=== PATIENT | male | born 1970 | race Caucasian/White ===

== ENCOUNTER 2024-02-03 20:11 | Emergency (ER) | payer MEDICARE, MEDICAID ==
[~2024-02-03] VITALS: Ht 172.7 cm; Wt 129.0 kg
[2024-02-03 21:05] VITALS: TEMP 98
[2024-02-03 21:05] LABS: BILIRUBIN,URINE NEGATIVE (Neg); CLARITY,URINE CLEAR (Clear); COLOR,URINE STRAW (Yellow); GLUCOSE, URINE >=1000 mg/dl (Neg); KETONES,URINE NEGATIVE (Neg); LEUKOCYTE ESTERASE ,URINE NEGATIVE (Neg); NITRITES, URINE NEGATIVE (Neg); OCCULT BLOOD,URINE TRACE-INTACT (Neg); PROTEIN,URINE NEGATIVE (Neg); UROBILINOGEN,URINE 0.2 E.U/dL (0.2-1.0)
[2024-02-03 21:12] LABS: UA COLLECTION TYPE CLN CATCH MIDSTREAM
[2024-02-03 21:14] LABS: BACTERIA,URINE NONE SEEN /HPF (Neg); RBC,URINE 0-2 /HPF (0-2); WBC,URINE 0-4 /HPF (0-4)
[2024-02-03 21:15] LABS: SQUAMOUS EPITHELIAL CELL,UR FEW /LPF (FEW)
[2024-02-03 21:38] LABS: BASOPHILS # (AUTO) 0.1 X10'3 (0-0.2); BASOPHILS % (AUTO) 0.8 % (0-1); EOSINOPHILS # (AUTO) 0.2 X10'3 (0-0.9); EOSINOPHILS % (AUTO) 1.9 % (0-6); HEMATOCRIT 44.9 % (42.0-52.0); HEMOGLOBIN 15.2 g/dl (14.0-17.9); LYMPHOCYTES # (AUTO) 2.4 X10'3 (1.1-4.8); LYMPHOCYTES % (AUTO) 26.1 % (21-51); MEAN CORPUSCULAR HEMOGLOBIN 29.8 PG (27.0-31.0); MEAN CORPUSCULAR HGB CONC 33.8 g/dL (33.0-36.5); MEAN CORPUSCULAR VOLUME 88.4 FL (78-98); MEAN PLATELET VOLUME 9.6 FL (7.4-10.4); MONOCYTES # (AUTO) 0.6 X10'3 (0-0.9); MONOCYTES % (AUTO) 6.6 % (2-12); NEUTROPHILS # (AUTO) 5.9 X10'3 (1.8-7.7); NEUTROPHILS % (AUTO) 64.6 % (42-75); PLATELET COUNT 208 X10'3 (140-440); RED BLOOD COUNT 5.08 X10'6 (4.70-6.10); RED CELL DISTRIBUTION WIDTH 13.7 % (11.5-14.5); WHITE BLOOD COUNT 9.1 X10'3 (4.5-11.0)
[2024-02-03 22:00] LABS: ALANINE AMINOTRANSFERASE 45 U/L (12-78); ALBUMIN 3.4 G/DL (3.4-5.0); ALBUMIN/GLOBULIN RATIO 0.9 (1.1-1.5); ALKALINE PHOSPHATASE 119 IU/L (46-116); ANION GAP 7 (8-16); ASPARTATE AMINO TRANSFERASE 24 U/L (10-37); BILIRUBIN,TOTAL 0.3 MG/DL (0.1-1.0); BLOOD UREA NITROGEN 15 MG/DL (7-18); BUN/CREATININE RATIO 18.3 (10.0-20.0); CALCIUM 8.4 MG/DL (8.5-10.1); CHLORIDE 99 MMOL/L (99-107); CREATININE 0.82 MG/DL (0.60-1.10); SODIUM 131 MMOL/L (135-145); TOTAL CARBON DIOXIDE 24.6 MMOL/L (24-32); TOTAL PROTEIN 7.4 G/DL (6.4-8.2); eCRCL 101 ML/MIN; eGFR > 90 ML/MIN
[2024-02-03 22:01] LABS: PRO BRAIN NATRIURETIC PEPTIDE 537 PG/ML (0-125)
[2024-02-03 22:02] LABS: POTASSIUM 4.1 MMOL/L (3.5-5.1)
[2024-02-03 22:51] LABS: GLUCOSE 416 MG/DL (70-104)
[2024-02-03] MEDS ORDERED: normal saline 1000ML IV soln IVB ONE (23:15)
[2024-02-03] MEDS ORDERED: METF-900 PO (23:30)
[2024-02-03] MEDS ORDERED: ATOR10TA87 PO (23:30)
[2024-02-03] MEDS ORDERED: CARV-50 PO (23:30)
[2024-02-03] MEDS ORDERED: SACU1TAB PO (23:30)
[2024-02-03] MEDS: ketorolac tromethamine 15mg/ml inj. IV ONE (23:54)
[2024-02-03] MEDS: ketorolac trometh. 30mg/ml inj. IV ONE (23:55)
[2024-02-03] MEDS: normal saline 1000ml 1,000 ML IV ONE (23:58)
[2024-02-03] MEDS: acetaminophen 325mg tablet PO ONE (23:59)
[2024-02-04] MEDS: insulin regular, human 10 units/0.1 ml syringe IV ONE (00:01)
[2024-02-04 01:45] VITALS: BP 157/105; PULSE 84; RESP 18; O2SAT 96
== END 2024-02-04 01:50 | disposition home or self-care (01) ==
LOC: ER 20:12
DX: E11.65 Type 2 diabetes mellitus with hyperglycemia (principal); Z91.148 Patient's other noncompliance with medication regimen for other reason; I50.9 Heart failure, unspecified
CPT/HCPCS: 36415; 71045; 80053; 81001; 82948; 83605; 83880; 84145; 84484; 85025; 87040; 93005; 96361; 96374; 96375; 99285; J1815; J1885; J7030

== ENCOUNTER 2024-04-26 11:10 | Emergency (ER) | payer MEDICARE, MEDICAID ==
[~2024-04-26 11:10] MED LIST: SACU1TAB PO
== END 2024-04-26 12:14 | disposition left against medical advice (07) ==
LOC: ER 11:11
DX: R06.02 Shortness of breath (principal); Z53.21 Procedure and treatment not carried out due to patient leaving prior to being seen by health care provider

== ENCOUNTER 2024-04-28 04:31 | Emergency (ER) | payer MEDICARE, MEDICAID ==
[~2024-04-28] VITALS: Ht 177.8 cm; Wt 125.0 kg
[2024-04-28] MEDS: normal saline 1000ml 1,000 ML IV ONE (05:40)
[2024-04-28 06:02] LABS: BILIRUBIN,URINE NEGATIVE (Neg); CLARITY,URINE CLEAR (Clear); COLOR,URINE STRAW (Yellow); GLUCOSE, URINE >=1000 mg/dl (Neg); KETONES,URINE NEGATIVE (Neg); LEUKOCYTE ESTERASE ,URINE NEGATIVE (Neg); NITRITES, URINE NEGATIVE (Neg); OCCULT BLOOD,URINE NEGATIVE (Neg); PROTEIN,URINE TRACE mg/dl (Neg); UROBILINOGEN,URINE 0.2 E.U/dL (0.2-1.0)
[2024-04-28 06:07] LABS: UA COLLECTION TYPE CLN CATCH MIDSTREAM
[2024-04-28 06:12] LABS: BACTERIA,URINE NONE SEEN /HPF (Neg); RBC,URINE NONE SEEN /HPF (0-2); WBC,URINE 0-4 /HPF (0-4)
[2024-04-28 06:13] LABS: MUCUS STRANDS NONE SEEN /LPF (Neg); SQUAMOUS EPITHELIAL CELL,UR FEW /LPF (FEW)
[2024-04-28 06:58] VITALS: TEMP 98.3
[2024-04-28] MEDS: ondansetron/PF 4mg/2ml inj IV ONE (07:25)
[2024-04-28] MEDS: morphine 4 MG/ML inj SYRINge IV ONE (07:25)
[2024-04-28 07:42] LABS: BASOPHILS # (AUTO) 0.1 X10'3 (0-0.2); BASOPHILS % (AUTO) 0.6 % (0-1); EOSINOPHILS # (AUTO) 0.1 X10'3 (0-0.9); EOSINOPHILS % (AUTO) 1.4 % (0-6); HEMATOCRIT 44.3 % (42.0-52.0); HEMOGLOBIN 14.4 g/dl (14.0-17.9); LYMPHOCYTES # (AUTO) 2.2 X10'3 (1.1-4.8); LYMPHOCYTES % (AUTO) 23.5 % (21-51); MEAN CORPUSCULAR HGB CONC 32.5 g/dL (33.0-36.5); MEAN PLATELET VOLUME 9.5 FL (7.4-10.4); MONOCYTES # (AUTO) 0.6 X10'3 (0-0.9); MONOCYTES % (AUTO) 6.4 % (2-12); NEUTROPHILS # (AUTO) 6.5 X10'3 (1.8-7.7); NEUTROPHILS % (AUTO) 68.1 % (42-75); PLATELET COUNT 205 X10'3 (140-440); RED BLOOD COUNT 4.98 X10'6 (4.70-6.10); RED CELL DISTRIBUTION WIDTH 14.4 % (11.5-14.5); WHITE BLOOD COUNT 9.5 X10'3 (4.5-11.0)
[2024-04-28 08:04] LABS: ALANINE AMINOTRANSFERASE 66 U/L (12-78); ALBUMIN 3.3 G/DL (3.4-5.0); ALBUMIN/GLOBULIN RATIO 0.9 (1.1-1.5); ALKALINE PHOSPHATASE 90 IU/L (46-116); ANION GAP 12 (8-16); ASPARTATE AMINO TRANSFERASE 39 U/L (10-37); BILIRUBIN,TOTAL 0.4 MG/DL (0.1-1.0); BLOOD UREA NITROGEN 14 MG/DL (7-18); BUN/CREATININE RATIO 18.4 (10.0-20.0); CALCIUM 8.7 MG/DL (8.5-10.1); CHLORIDE 102 MMOL/L (99-107); CREATININE 0.76 MG/DL (0.60-1.10); GLUCOSE 326 MG/DL (70-104); LIPASE 51 U/L (16-77); POTASSIUM 3.8 MMOL/L (3.5-5.1); SODIUM 135 MMOL/L (135-145); TOTAL CARBON DIOXIDE 21.1 MMOL/L (24-32); TOTAL PROTEIN 6.9 G/DL (6.4-8.2); eCRCL 116 ML/MIN; eGFR > 90 ML/MIN
[2024-04-28] MEDS: insulin regular, human 10 units/0.1 ml syringe IV ONE ×2 (08:28→09:52)
[2024-04-28 09:42] LABS: PRO BRAIN NATRIURETIC PEPTIDE 1346 PG/ML (0-125)
[2024-04-28] MEDS ORDERED: SUCR1TAB PO (12:28)
[2024-04-28 13:09] VITALS: BP 97/73; PULSE 88; RESP 18; O2SAT 95
== END 2024-04-28 13:47 | disposition home or self-care (01) ==
LOC: ER 05:02
DX: K29.00 Acute gastritis without bleeding (principal); E11.65 Type 2 diabetes mellitus with hyperglycemia; E86.0 Dehydration; R10.13 Epigastric pain; Z79.899 Other long term (current) drug therapy; I50.9 Heart failure, unspecified
CPT/HCPCS: 36415; 74176; 76700; 80053; 81001; 82948; 83690; 83880; 84484; 85025; 96361; 96374; 96375; 96376; 99285; J1815; J2270; J2405; J7030

== ENCOUNTER 2024-04-30 06:01 | Emergency (ER) | payer MEDICARE, MEDICAID ==
[~2024-04-30] VITALS: Ht 185.4 cm; Wt 127.3 kg
[~2024-04-30 06:01] MED LIST changes: +SUCR1TAB PO
[2024-04-30] MEDS ORDERED: carvedilol 6.25mg tablet PO SCH (07:45)
[2024-04-30] MEDS: carvedilol 6.25mg tablet PO ONE (08:57)
[2024-04-30 09:07] LABS: BASOPHILS % (AUTO) 0.4 % (0-1); EOSINOPHILS # (AUTO) 0.1 X10'3 (0-0.9); EOSINOPHILS % (AUTO) 1.2 % (0-6); HEMATOCRIT 44.1 % (42.0-52.0); HEMOGLOBIN 14.8 g/dl (14.0-17.9); LYMPHOCYTES # (AUTO) 1.9 X10'3 (1.1-4.8); LYMPHOCYTES % (AUTO) 20.5 % (21-51); MEAN CORPUSCULAR HEMOGLOBIN 29.9 PG (27.0-31.0); MEAN CORPUSCULAR HGB CONC 33.4 g/dL (33.0-36.5); MEAN CORPUSCULAR VOLUME 89.4 FL (78-98); MEAN PLATELET VOLUME 9.9 FL (7.4-10.4); MONOCYTES # (AUTO) 0.5 X10'3 (0-0.9); MONOCYTES % (AUTO) 5.6 % (2-12); NEUTROPHILS # (AUTO) 6.6 X10'3 (1.8-7.7); NEUTROPHILS % (AUTO) 72.3 % (42-75); PLATELET COUNT 197 X10'3 (140-440); RED BLOOD COUNT 4.94 X10'6 (4.70-6.10); RED CELL DISTRIBUTION WIDTH 14.4 % (11.5-14.5); WHITE BLOOD COUNT 9.1 X10'3 (4.5-11.0)
[2024-04-30 09:31] LABS: ALBUMIN 3.5 G/DL (3.4-5.0); ANION GAP 13 (8-16); BLOOD UREA NITROGEN 15 MG/DL (7-18); BUN/CREATININE RATIO 16.5 (10.0-20.0); CALCIUM 9.1 MG/DL (8.5-10.1); CHLORIDE 100 MMOL/L (99-107); CREATININE 0.91 MG/DL (0.60-1.10); GLUCOSE 312 MG/DL (70-104); MAGNESIUM 1.6 MG/DL (1.5-2.4); POTASSIUM 4.5 MMOL/L (3.5-5.1); PRO BRAIN NATRIURETIC PEPTIDE 1495 PG/ML (0-125); SODIUM 137 MMOL/L (135-145); TOTAL CARBON DIOXIDE 24.4 MMOL/L (24-32); eCRCL 106 ML/MIN; eGFR 87 ML/MIN
[2024-04-30 09:34] LABS: ETHANOL < 10 MG/DL (<10)
[2024-04-30] MEDS: nitroGLYCERIN 0.4mg/hour patch TD ONE (11:08)
[2024-04-30] MEDS: furosemide 20MG tablet PO ONE (11:10)
[2024-04-30] MEDS: carvedilol 6.25mg tablet PO SCH (11:10)
[2024-04-30] MEDS: insulin regular, human 10 units/0.1 ml syringe SQ ONE (11:13)
[2024-04-30 11:26] LABS: ALANINE AMINOTRANSFERASE 73 U/L (12-78); ALBUMIN/GLOBULIN RATIO 0.9 (1.1-1.5); ALKALINE PHOSPHATASE 98 IU/L (46-116); ASPARTATE AMINO TRANSFERASE 40 U/L (10-37); BILIRUBIN,DIRECT 0.1 MG/DL (0-0.3); BILIRUBIN,TOTAL 0.3 MG/DL (0.1-1.0); TOTAL PROTEIN 7.5 G/DL (6.4-8.2)
[2024-04-30 11:31] LABS: BILIRUBIN,URINE NEGATIVE (Neg); CLARITY,URINE CLEAR (Clear); COLOR,URINE STRAW (Yellow); GLUCOSE, URINE >=1000 mg/dl (Neg); KETONES,URINE NEGATIVE (Neg); LEUKOCYTE ESTERASE ,URINE NEGATIVE (Neg); NITRITES, URINE NEGATIVE (Neg); OCCULT BLOOD,URINE NEGATIVE (Neg); PH,URINE 5.5 (4.8-8.0); PROTEIN,URINE NEGATIVE (Neg); UROBILINOGEN,URINE 0.2 E.U/dL (0.2-1.0)
[2024-04-30 11:35] LABS: UA COLLECTION TYPE CLN CATCH MIDSTREAM
[2024-04-30 11:41] LABS: BACTERIA,URINE NONE SEEN /HPF (Neg); MUCUS STRANDS NONE SEEN /LPF (Neg); RBC,URINE NONE SEEN /HPF (0-2); SQUAMOUS EPITHELIAL CELL,UR NONE SEEN /LPF (FEW); WBC,URINE 0-4 /HPF (0-4)
[2024-04-30 11:56] LABS: URINE AMPHETAMINE SCREEN NEGATIVE (Neg); URINE BARBITUATE SCREEN NEGATIVE (Neg); URINE BENZODIAZEPINES SCREEN NEGATIVE (Neg); URINE CANNABINOID SCREEN POSITIVE (Neg); URINE COCAINE SCREEN NEGATIVE (Neg); URINE METHADONE SCREEN NEGATIVE (Neg); URINE OPIATE SCREEN NEGATIVE (Neg); URINE PHENCYCLIDINE SCREEN NEGATIVE (Neg)
[2024-04-30] MEDS ORDERED: CARV12.549 PO ×2 (14:25→15:46)
[2024-04-30] MEDS ORDERED: ATOR10TA87 PO ×2 (14:25→15:46)
[2024-04-30] MEDS ORDERED: METF-436 PO ×2 (14:25→15:46)
[2024-04-30] MEDS ORDERED: POTA20PA40 PO ×2 (14:25→15:46)
[2024-04-30] MEDS ORDERED: FURO20TA4 PO ×2 (14:25→15:46)
[2024-04-30] MEDS ORDERED: SACU1TAB PO (15:46)
[2024-04-30] MEDS ORDERED: NOVLG SQ (15:50)
[2024-04-30] MEDS ORDERED: LANTUS SUBCUT (15:51)
[2024-04-30] MEDS ORDERED: SYRI-641 SUBCUT (15:53)
[2024-04-30] MEDS ORDERED: DICY10CA88 PO (15:55)
[2024-04-30] MEDS: dicyclomine 10 MG capsule PO ONE (16:28)
[2024-04-30 16:42] VITALS: BP 136/98; PULSE 78; RESP 17; TEMP 98.6; O2SAT 96
[2024-05-01] MEDS ORDERED: METF-900 PO (14:44)
== END 2024-04-30 17:00 | disposition home or self-care (01) ==
LOC: ER 06:02
DX: I11.0 Hypertensive heart disease with heart failure (principal); I50.9 Heart failure, unspecified; E11.9 Type 2 diabetes mellitus without complications; F12.90 Cannabis use, unspecified, uncomplicated; Z91.199 Patient's noncompliance with other medical treatment and regimen due to unspecified reason; Z79.899 Other long term (current) drug therapy; Z79.84 Long term (current) use of oral hypoglycemic drugs
CPT/HCPCS: 36415; 71045; 80048; 80076; 80305; 81001; 82948; 83735; 83880; 84484; 85025; 93005; 96372; 99285; C8929; G0480; J1815; 80320; 93306

== ENCOUNTER 2024-05-01 13:22 | Emergency (ER) | payer MEDICARE, MEDICAID ==
[~2024-05-01] VITALS: Ht 185.4 cm; Wt 127.6 kg
[~2024-05-01 13:22] MED LIST changes: +ATOR10TA87 PO; +CARV12.549 PO; +DICY10CA88 PO; +FURO20TA4 PO; +LANTUS SUBCUT; +METF-436 PO; +NOVLG SQ; +POTA20PA40 PO; -SUCR1TAB PO; +SYRI-641 SUBCUT
[2024-05-01 13:28] VITALS: BP 143/107; PULSE 84; RESP 16; TEMP 98.2; O2SAT 97
[2024-05-01] MEDS ORDERED: METF-900 PO (14:44)
== END 2024-05-01 14:27 | disposition left against medical advice (07) ==
LOC: ER 13:22
DX: Z76.0 Encounter for issue of repeat prescription (principal); Z53.21 Procedure and treatment not carried out due to patient leaving prior to being seen by health care provider; Z79.84 Long term (current) use of oral hypoglycemic drugs
CPT/HCPCS: 82948

== ENCOUNTER 2024-05-01 14:26 | Emergency (ER) | payer MEDICARE, MEDICAID ==
[~2024-05-01] VITALS: Ht 185.4 cm; Wt 127.3 kg
[2024-05-01 14:27] VITALS: BP 146/99; PULSE 85; RESP 16; TEMP 98.6; O2SAT 97
[2024-05-01] MEDS ORDERED: METF-900 PO (14:44)
== END 2024-05-01 15:05 | disposition home or self-care (01) ==
LOC: ER 14:27
DX: I11.0 Hypertensive heart disease with heart failure (principal); I50.9 Heart failure, unspecified; E11.9 Type 2 diabetes mellitus without complications; F12.90 Cannabis use, unspecified, uncomplicated; Z91.148 Patient's other noncompliance with medication regimen for other reason; Z79.899 Other long term (current) drug therapy; Z79.4 Long term (current) use of insulin; Z79.84 Long term (current) use of oral hypoglycemic drugs
CPT/HCPCS: 93005; 99283

== ENCOUNTER 2025-01-21 09:44 | Emergency (ER) | payer MEDICAID, MEDICARE ==
[~2025-01-21] VITALS: Ht 185.4 cm; Wt 138.0 kg
[~2025-01-21 09:44] MED LIST changes: -DICY10CA88 PO; -LANTUS SUBCUT
[2025-01-21 09:47] VITALS: BP 149/105; PULSE 91; TEMP 97.5; O2SAT 99
[2025-01-21 09:56] VITALS: RESP 18
--- NOTE | 2025-01-21 10:04 | ELECTROCARDIOGRAPH REPORT ---
[facility] Test Date: 2025-01-21 Test Time: 10:03:24 Pat Name: DAPHNE FLORENCE Department: [facility]- Patient ID: [facility]-[id number] Room: Gender: M Cna Ltc: : 1970 Requested By: DARLEEN COLLINS Order Number: [id number] Reading MD: Measurements Intervals [place] Rate: 72 P: 22 SC: 173 QRS: -5 QRSD: 110 T: 95 QT: 405 QTc: 444 Interpretive Statements Sinus rhythm Incomplete left bundle branch block Baseline wander in lead(s) V3 Please click the below link to view image of tracing.
--- NOTE | 2025-01-21 10:05 | Physician Documentation ---
History of Present Illness Chief Complaint: See Chief Complaint Stated Complaint: "FEELING SICK" Time Seen by MD: 09:49 OK to notify your PCP?: Yes Source: patient Mode of Arrival: POV Exam Limitations: no limitations HPI 54-year-old male with CHF, diabetes, on Eliquis but does not know why, brought in by EMS with chief complaint epigastric pain x2 days. Reports associated nausea without vomiting. He states I just do not feel good. Patient denies any pre arrival treatment. No prior abdominal surgeries. He denies any recent weight gain, diarrhea, constipation, chest pain, worsening of his chronic shortness of breath. Medication Reconciliation Allergies: Coded Allergies: No Known Allergies (Unverified , 01/21/25) Scheduled Atorvastatin Calcium* (Lipitor*), 1 TAB PO DAILY Carvedilol (Carvedilol), 1 TAB PO Q12H Furosemide (Furosemide), 1 TAB PO DAILY Insulin Aspart (Novolog), 100 UNIT SQ TIDAC Metformin Hcl (Metformin Hcl), 1 TAB PO Q12H Potassium Chloride (Klor-Con), 1 PKT PO DAILY Sacubitril/Valsartan (Entresto 24 mg-26 mg Tablet), 1 TAB PO Q12H Durable Medical Equipment Syringe & Needle,Insulin,1 ml (Insulin Syringe), SYR SUBCUT Q12H, (DME) Past Medical History Past Medical History: Congestive Heart Failure, Hypertension, Diabetes Past Surgical History: noncontributory Alcohol Use: Sober Drug Use: marijuana Lives with: Spouse Lives In: Home Review of Systems All Other Systems at this time: Reviewed and Negative Physical Exam Vital Signs: Temperature: 97.5, Source: Oral, Heart Rate: 91, Respiratory Rate: 22, BP: 149/105, Pulse Oximetry: 99, Weight: 138.000 Oxygen Flow Rate: 0 Physical Exam GENERAL: Alert, no acute distress. HEENT: NCAT, EOMI, PERRL, moist oral mucosa. NECK: Supple, trachea midline. CARDIAC: Regular rate and rhythm, no murmurs, rubs, or gallops. PV: Equal distal pulses. No lower extremity edema, cap refill less than 2 seconds. RESPIRATORY: Equal breath sounds, clear to auscultation bilaterally, no respiratory distress. GASTROINTESTINAL: Non distended, soft, epigastric TTP, negative Barnes's sign, No guarding or rebound. MUSCULOSKELETAL: Normal range of motion, nontender, no swelling. Normal gait. NEUROLOGICAL: Awake, alert, and oriented x 3. SKIN: Warm/dry, no pallor, no rash. PSYCH: Alert and appropriate. Affect congruent with mood. Speech is clear. Good eye contact. Progress Progress Note PATIENT WALKING AROUND INSIDE EXAM ROOM AND TO AND FROM BATHROOM WITHOUT ANY SIGNS OF DISTRESS, APPEARS COMFORTABLE. U/S WAS NEGATIVE. LABS NORMAL. 1ST TROPONINS NEGATIVE AND GIVEN SYMPTOMS PRESENT FOR 2DAYS I DID NOT FEEL DOING SECOND SET OF TROPONINS WAS NECESSARY ESPECIALLY BECAUSE I HAD LOW SUSPICION FOR CARDIAC ETIOLOGY. Results/Orders Reviewed/noted all lab results: Yes Results/Orders Vital Signs 01/21/25 09:47 Temp 97.5 Pulse 91 Resp 22 B/P (MAP) 149/105 Pulse Ox 99 O2 Flow Rate 0 Re-Evaluation Re-Evaluation : Re-Evaluation: Unchanged EKG/XRAY/CT/US/VASC/MRI Ultrasound : Interpreted By: radiologist Ultrasound of: abdomen Impression negative for stones, gallbladder wall thickening or any acute findings Medical Decision Making Differential Dx:Considerations: Include: AAA, Angina/PR, Aortic dissection, Appendicitis, Bowel obstruction, Cholangitis, Cholelithasis, Constipation, Diverticular disease, Esophageal rupture, Esophagitis, Gastritis/PUD, Gastroenteritis, GI hemorrhage, Hernia, Hepatitis, Inflammatory BD, Ischemic bowel, Pancreatitis, Porphyria, Testicular torsion, Trauma, intraabdominal, Urinary obstruction, Urinary tract infection, Urolithiasis Additional Comments Patient has not had any weight gain, appears euvolemic no pitting lower extremity edema patient's shortness of breath is at his baseline the CHF exacerbation unlikely. His pain is epigastric thus troponins were included with his workup especially considering his cardiac history and were negative. Given presence of symptoms for 2days, repeating troponins was not done. Due to his pain being epigastric, I ordered an ultrasound also assess for gallbladder etiology which was unremarkable. No changes in bowel habits, having normal bowel habits, abdomen soft without peritoneal signs, vital signs normal and labs normal thus patient stable for discharge for outpatient work up. Departure Time of Disposition: 10:04 Disposition: 01 HOME / SELF CARE / HOMELESS Impression: Primary Impression: Epigastric abdominal pain Additional Impressions: CHF (congestive heart failure) Qualified Codes: I50.9 - Heart failure, unspecified Diabetes Qualified Codes: E13.9 - Other specified diabetes mellitus without complications Discharge Instructions: Abdominal Pain, Adult, [id number] Additional Instructions: NO EVIDENCE FOR CHF EXACERBATION NO EVIDENCE FOR HEART STRAIN U/S NEGATIVE FOR GALLBLADDER PATHOLOGY/ETIOLOGY FOR POTENTIAL CAUSE OF EPIGASTRIC PAIN AND NAUSEA LABS WERE NORMAL. I AM UNSURE WHAT IS CAUSING YOUR EPIGASTRIC PAIN AND NAUSEA BUT DO NOT SEE ANY RED FLAG SIGNS OR SYMPTOMS OR NEED FOR ADMISSION FOR FURTHER WORK UP. RECOMMEND F/U WITH PCP. BLAND FOODS AND GRADUALLY PROGRESS DIET TOLERATED. IF FEVER, VOMITING, INCREASING PAIN, CHANGES IN BOWEL HABITS RETURN TO ER. Referrals: NO PRIMARY CARE PROVIDER (PCP) Education Educated: Patient Educated regarding: diagnosis, treatment, need for follow up Signature Scribe Signature: x Attestation: DARLEEN Molina January 21, 2025 10:05
[2025-01-21 10:20] LABS: BASOPHILS # (AUTO) 0.1 X10'3 (0-0.2); BASOPHILS % (AUTO) 0.9 % (0-1); EOSINOPHILS # (AUTO) 0.1 X10'3 (0-0.9); EOSINOPHILS % (AUTO) 1.1 % (0-6); HEMATOCRIT 45.7 % (42.0-52.0); HEMOGLOBIN 15.3 g/dl (14.0-17.9); LYMPHOCYTES # (AUTO) 2.1 X10'3 (1.1-4.8); LYMPHOCYTES % (AUTO) 22.8 % (21-51); MEAN CORPUSCULAR HEMOGLOBIN 28.9 PG (27.0-31.0); MEAN CORPUSCULAR HGB CONC 33.6 g/dL (33.0-36.5); MEAN CORPUSCULAR VOLUME 86.1 FL (78-98); MEAN PLATELET VOLUME 7.9 FL (7.4-10.4); MONOCYTES # (AUTO) 0.5 X10'3 (0-0.9); MONOCYTES % (AUTO) 5.6 % (2-12); NEUTROPHILS # (AUTO) 6.3 X10'3 (1.8-7.7); NEUTROPHILS % (AUTO) 69.6 % (42-75); PLATELET COUNT 252 X10'3 (140-440); RED BLOOD COUNT 5.31 X10'6 (4.70-6.10); RED CELL DISTRIBUTION WIDTH 15.6 % (11.5-14.5); WHITE BLOOD COUNT 9.1 X10'3 (4.5-11.0)
[2025-01-21 10:27] LABS: ALBUMIN 3.5 G/DL (3.4-5.0); ANION GAP 11 (8-16); BLOOD UREA NITROGEN 13 MG/DL (7-18); BUN/CREATININE RATIO 15.7 (10.0-20.0); CALCIUM 8.6 MG/DL (8.5-10.1); CHLORIDE 104 MMOL/L (99-107); CREATININE 0.83 MG/DL (0.60-1.10); GLUCOSE 147 MG/DL (70-104); POTASSIUM 3.9 MMOL/L (3.5-5.1); SODIUM 139 MMOL/L (135-145); TOTAL CARBON DIOXIDE 23.9 MMOL/L (24-32); eCRCL 115 ML/MIN; eGFR > 90 ML/MIN
--- NOTE | 2025-01-21 11:03 | RADIOLOGY REPORT ---
INDICATION: epigastric ruq pain TECHNIQUE: Multiple real-time sonographic images of the right upper abdomen were obtained. COMPARISON: US ULTRASOUND OF ABDOMEN on DOS: 04/28/24 FINDINGS: Evaluation limited due to obscuration from bowel gas and respiratory motion artifact. The l iver is increased in echogenicity. The liver measures 20 cm. No intrahepatic biliary ductal dilatati on is noted. The gallbladder wall measures 0.1 cm and is unremarkable. No gallstones or sludge is seen. The com mon duct measures 0.4 cm and is unremarkable. No pericholecystic fluid is noted. The right kidney measures 12 cm. No hydronephrosis. The pancreas is not well visualized due to obscuration from bowel gas. IMPRESSION: Hepatic steatosis and hepatomegaly. No shadowing gallstones.
--- NOTE | 2025-01-21 11:19 | RADIOLOGY REPORT ---
CHEST RADIOGRAPH Indication: Epigastric pain Technique: Single frontal view of the chest was obtained Comparison: DI CHEST,SINGLE VIEW on DOS: 04/30/24, DI CHEST,SINGLE VIEW on DOS: 02/03/24 FINDINGS: Lines and Tubes: None Lungs: No focal consolidation. Pleura: No effusion. No pneumothorax. Cardiomediastinal contours: Unremarkable Bones: No acute osseous abnormality. IMPRESSION: 1. No acute cardiopulmonary disease.
== END 2025-01-21 12:14 | disposition home or self-care (01) ==
LOC: ER 09:44
DX: R10.13 Epigastric pain (principal); E11.9 Type 2 diabetes mellitus without complications; I11.0 Hypertensive heart disease with heart failure; I50.9 Heart failure, unspecified; F12.90 Cannabis use, unspecified, uncomplicated; F10.90 Alcohol use, unspecified, uncomplicated; Y90.9 Presence of alcohol in blood, level not specified
CPT/HCPCS: 36415; 71045; 76700; 80048; 84484; 85025; 93005; 99285